=== PATIENT | female | born 1985 | race Caucasian/White ===

== ENCOUNTER 2016-05-28 09:08 | Inpatient (IN) | payer OTHER ==
[~2016-05-28] VITALS: Ht 172.7 cm; Wt 81.2 kg
[~2016-05-28 09:08] MED LIST: AMOXICILLIN875 M1 PO; BACTRIM DS TAB1 EACH PO; CLONIDINE HCL0.1 MG PO; DOLOPHINE10 MG PO; IBU800 MG PO; METHADONE H5 MG/5 M2 PO; PENICILLIN-VK500 MG PO; PREDNISONE10 MG PO; TESSALON PERLE100 MG PO; ZOFRAN4 M2 PO
--- NOTE | 2016-05-28 09:50 | ED PSYCHIATRIC COMPLAINT ---
See Addendum History of Present Illness General Chief Complaint: Psychiatric Related Complaint Stated Complaint: +SI Source: patient Exam Limitations: no limitations Vital Signs & Intake/Output Vital Signs & Intake/Output Vital Signs Date Time Temp Pulse Resp B/P Pulse O2 O2 Flow FiO2 Ox Delivery Rate 05/28 1404 Room Air 05/28 1403 97.3 64 16 112/84 05/28 1050 98.8 68 18 132/74 96 Room Air 05/28 0912 98.2 96 18 146/96 98 Room Air Allergies Coded Allergies: NO KNOWN ALLERGIES (07/16/15) Reconcile Medications Methadone HCl 5 MG/5 ML SOLUTION 75 MG PO DAILY HEROIN ABUSE (Reported) Triage Note: 30 YEAR OLD FEMALE STATES THAT SHE HAS BEEN USING HEROINE FOR 12 YEARS AND THAT SHE HAS BEEN TRYING TO STOP BUT CAN'T, WAS LIVING WITH HER MOTHER WHO HAS CUSTODY OF PATIENTS 6 YEAR OLD SON , BUT WAS KICKED OUT 2 NIGHTS AGO DUE TO SHE STOLE MONEY. PT LAST USED LAST PM AND ALSO STATES THAT SHE DRINKS A LOT BUT HAS NOT DRANK IN 2 DAYS. PT STATES THAT SHE CALLED HER MOTHER TODAY AND TOLD HER SHE WANTS TO AND HER MOTHER BROUGHT HER TO THE ER. PT HAS PLAN TO OVER DOSE ON HEROINE . STATES THAT SHE WAS RELEASED FROM ALF IN NOVEMBER , AND THAT SHE WAS IN A PROGRAM FOR AWHILE BUT NOW IS BACK USING. Triage Nurses Notes Reviewed? yes : No Patient currently breastfeeds: No HPI: Patient presents for evaluation of depression and suicide ideation. Patient states that she began using heroin again. She states that she was on a methadone maintenance program but then ended up in [facility] and was weaned off the methadone. After that she was being cared for by the [facility] program but then got "worked up" with somebody at the [facility] began using heroin again. She states she just got kicked out of her home and she is no longer able to see her daughter. She doesn't know what to do at this point. Past History Travel History Traveled to [place] past 21 day No Medical History Any Pertinent Medical History? 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 No Review of Systems Review of Systems Constitutional: Reports: no symptoms. EENTM: Reports: no symptoms. Respiratory: Reports: no symptoms. Cardiovascular: Reports: no symptoms. GI: Reports: no symptoms. Genitourinary: Reports: no symptoms. Musculoskeletal: Reports: no symptoms. Skin: Reports: no symptoms. Neurological/Psychological: Reports: see HPI. Hematologic/Endocrine: Reports: no symptoms. Immunologic/Allergic: Reports: no symptoms. All Other Systems: Reviewed and Negative Physical Exam Physical Exam General Appearance: SEE BELOW Neurological/Psychiatric: SEE BELOW Comments: General: Alert, calm, cooperative, somewhat disheveled Head: Normocephalic, atraumatic Eyes: Normal inspection, no nystagmus, EOMI Ears: Normal inspection Nose: Normal inspection Throat: Moist mucosa Neck: Supple, no goiter Heart: Regular rate and rhythm, no murmurs rubs or gallops Lungs: Clear to auscultation bilaterally with good air entry Abdomen: Soft nontender nondistended, normal bowel sounds Chest: Nontender Extremities: Normal range of motion grossly, mild tremors present, no cyanosis clubbing or edema of the upper extremities, track long of the upper extremities Neurologic: cranial nerves II through XII grossly intact, speech clear, gait normal Psychiatric: No apparent delusions or hallucinations, no pressured speech or thought blocking SAD PERSONS Done? deferred to crisis Progress Differential Diagnosis: depression, bipolar disorder, anxiety Plan of Care: Orders Procedure Date/time Status Regular Diet 05/29 B Active EKG 05/28 1632 Active Lab Add-on Test 05/28 1630 Active URINE 05/28 1630 Active Patient Data - inpatient psych 05/28 1626 Active Admit to inpatient psych 05/28 1626 Active ETHANOL 05/28 0950 Complete CBC WITHOUT DIFFERENTIAL 05/28 0950 Complete BASIC METABOLIC PANEL 05/28 0950 Complete ED CRISIS PSYCH CONSULT 05/28 0950 Active URINE DRUG SCREEN FOR ER ONLY 05/28 0942 Complete Vital Signs 05/28 UNK Active Nursing Misc 05/28 UNK Active Alternative Nursing Therapy 05/28 UNK Active Activity/Ambulation 05/28 UNK Active Current Medications Sig/José Start time Last Medication Dose Stop Time Status Admin Nicotine 14 MG DAILY 05/29 1000 UNVr (Nicotine Cq) Clonidine 0.1 MG TID 05/280 UNVr (Catapres) Acetaminophen 650 MG Q6P PRN 05/28 164 UNVr (Tylenol) Al Hydroxide/Mg 30 ML Q4-6 PRN PRN 05/28 164 UNVr Hydroxide (Maalox Plus) Gabapentin 300 MG Q6P PRN 05/28 164 UNVr (Neurontin) Magnesium Hydroxide 30 ML AT BEDTIME PRN 05/28 164 UNVr (Milk Of Magnesia) Trazodone HCl 50 MG AT BEDTIME NEED.. 05/28 164 UNVr (Desyrel) Baclofen 10 MG Q6P PRN 05/28 163 UNVr (Lioresal 10MG Tablet) Clonidine 0.1 MG Q6P PRN 05/28 163 UNVr (Catapres) Dicyclomine HCl 20 MG Q6P PRN 05/28 163 UNVr (Bentyl) Laboratory Tests 05/28/16 1059: Anion Gap 9, Estimated GFR > 60, BUN/Creatinine Ratio 11.4, Glucose 93, Calcium 9.5, CBC w Diff NO MAN DIFF REQ, RBC 4.44, MCV 87.7, MCH 30.4, RDW 13.0, MPV 7.5 , Gran % 62.8, Lymphocytes % 27.1, Monocytes % 9.3, Eosinophils % 0.6, Basophils % 0.2, Absolute Granulocytes 2.2, Absolute Lymphocytes 1.0 L, Absolute Monocytes 0.3, Absolute Eosinophils 0, Absolute Basophils 0, PUBS MCHC 34.7, Serum Alcohol < 10.0 05/28/16 0945: Urine Opiates Screen 3720.00 H, Methadone Screen < 40, Barbiturate Screen < 60, Ur Phencyclidine Scrn < 6.00, Amphetamines Screen < 100, U Benzodiazepines Scrn < 85, Urine Cocaine Screen < 50, Urine Cannabis Screen < 5.00 Departure Departure Disposition: STILL A PATIENT Condition: Stable Clinical Impression Primary Impression: Major depression Qualifiers: Major depression recurrence: recurrent Active/Remission status: currently active Major depression episode severity: severe Psychotic features: without psychotic features Qualified Code: F33.2 - Major depressive disorder, recurrent severe without psychotic features Secondary Impressions: Heroin use Referrals: PATIENT HAS NO PRIMARY CARE DR (PCP/Family) Departure Forms: Customer Survey General Discharge Information Psych Admission Note Psychiatric Admission: I have seen and evaluated DARIA BANKS. I have also reviewed all the pertinent lab results and diagnostic results. DARIA BANKS will be admitted to our inpatient Psychiatric unit for treatment and care.
[2016-05-28 11:12] LABS: ABSOLUTE BASOPHIL COUNT 0 /CUMM (0.0-0.2); ABSOLUTE EOSINOPHIL COUNT 0 /CUMM (0.0-0.7); ABSOLUTE GRANULOCYTE CT 2.2 /CUMM (1.4-6.5); ABSOLUTE MONOCYTE COUNT 0.3 /CUMM (0.10-0.60); BASOPHIL % 0.2 % (0.0-2.0); EOSINOPHIL % 0.6 % (0-5); GRANULOCYTE % 62.8 % (42.2-75.2); MEAN CORPUSCULAR HGB 30.4 PG (27.0-31.0); MEAN CORPUSCULAR HGB CONC 34.7 G/DL (33.0-37.0); MEAN CORPUSCULAR VOLUME 87.7 FL (81.0-99.0); MEAN PLATELET VOLUME 7.5 FL (7.4-10.4); PLATELET COUNT 210 /CUMM (130-400); RED BLOOD CELL CT 4.44 /CUMM (4.20-5.40); WHITE BLOOD CELL COUNT 3.5 /CUMM (4.8-10.8)
--- NOTE | 2016-05-28 14:27 | ED PSY CRISIS COLLATERAL NOTE ---
Collateral Note Collateral Note Family/Inform/Madalyn Contacts: Crisis spoke to pt's Mother Melissa Bell who had brought pt to the ED. She reports that pt always expresses that her life has no meaning. Mom continues by stating "It's true. Her life doesn't have any meaning. Her boyfriend is in penitentiary, she has no job, she's a heroin addict, she lost custody of her son. This has been going on for 10 years and you know what? She should just do her family a favor and . Her father 3 years ago and she should go join him. Sorry I can't help you good bye." She then hung up the phone.
--- NOTE | 2016-05-28 17:24 | ED PSYCH CRISIS CONSULTATION ---
Crisis Consult Basic Assessment Date of Consult: 05/28/16 Responsible Person/Accompanied By: self/mother Insurance Authorization: Insurance #1: Insurance name: ESTHER Cochran C&A Phone number: Policy number: [id number] Group number: Authorization number: ED Provider: Patient's ED Provider: ARI VIZCARRA MD Primary Care Physician: Patient's PCP: PATIENT HAS NO PRIMARY CARE DR PCP's Phone Number: Current Psychiatrist: none Chief Complaint: Psychiatric Related Complaint Patient's Quote: I don't trust myself . I'm afraid I will o/d on heroin. Present Illness: PT is a 30 you female presenting at [facility] today for SI. Pt is brought in by her mother. Pt has a 12 year hx of heroin addiction and 2 prior [facility] admissions (2006 and 2007). Pt reports heroin relapse one month ago and 2 days ago was kicked out of the house by mother for suspected stealing. Pt reports currently living in her car. Pt reports wanting to o/d on heroin and had intent last night to use 25 bags but was stopped by a friend. Pt states "I know alot of people dying from heroin o/d and why can't I be that shahab". Pt reports being hopeless. Pt reports 8 depression. Pt had a prior suicide attempt by overdose (ambian and atvern) in 2006. Pt reports not wanting to kill herself because of her 6 yo son. She reports DCF involvement due to failing drug tests. Pt reports she was court mandated last fall for [facility] and was able to stop methadone and was several months clean from heroin until relapse last month. She reports hx of anxiety(11/12) and had a prescription for xanax that her mother took away from her so she ended up using heroin instead. Pt reports last use last evening of 2 bags and reorts currently feeling shaky and sweating. Pt reports outpatient hx has been primarily drug treatment related. Pt reports recently being prescribed Wellbutrin but stopped because it was causing headaches. Pt is alert and oriented X3 and is seeking volunteer inpatient psychiatric tx. Patient's Address: [address] [place] [address] Other Phone Number: Who Do You Live With? Family (mother and son (6yo)) Family/Informants Interviewed: collateral provided by pt mother Melissa Bell - [phone]. see note Allergies - Coded Allergies: NO KNOWN ALLERGIES (07/16/15) Current Medications - Scheduled Medications Methadone HCl 5 MG/5 ML SOLUTION 75 MG PO DAILY HEROIN ABUSE (Reported) Entered as Reported by NATALEE VICTOR on 06/09/15 1435 Laboratory Results: Laboratory Tests 05/28/16 1655: Urine Test Pending 05/28/16 1059: Anion Gap 9, Estimated GFR > 60, BUN/Creatinine Ratio 11.4, Glucose 93, Calcium 9.5, Total Bilirubin Pending, Direct Bilirubin Pending, AST Pending, ALT Pending , Alkaline Phosphatase Pending, Total Protein Pending, Albumin Pending, TSH Pending, CBC w Diff NO MAN DIFF REQ, RBC 4.44, MCV 87.7, MCH 30.4, RDW 13.0, MPV 7.5, Gran % 62.8, Lymphocytes % 27.1, Monocytes % 9.3, Eosinophils % 0.6, Basophils % 0.2, Absolute Granulocytes 2.2, Absolute Lymphocytes 1.0 L, Absolute Monocytes 0.3, Absolute Eosinophils 0, Absolute Basophils 0, PUBS MCHC 34.7, Serum Alcohol < 10.0 05/28/16 0945: Urine Opiates Screen 3720.00 H, Methadone Screen < 40, Barbiturate Screen < 60, Ur Phencyclidine Scrn < 6.00, Amphetamines Screen < 100, U Benzodiazepines Scrn < 85, Urine Cocaine Screen < 50, Urine Cannabis Screen < 5.00 Past History Past Medical History Neurological: NONE EENT: NONE Cardiovascular: NONE Respiratory: NONE Gastrointestinal: pancreatitis Hepatic: NONE Renal: NONE Musculoskeletal: NONE Psychiatric: substance abuse Endocrine: NONE Blood Disorders: NONE Cancer(s): NONE 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 Wants to get better for her son. Physical Limitations (Interventions): none Psychiatric Treatment History Psych Treatment Psychiatric Treatment Yes Inpatient Treatment Yes Outpatient Treatment Yes Location of Treatment [facility] Reason for Treatment Depression o/d heroin dependence Dates of Treatment 2006; 2007 Response to Treatment 12 yrs of heroin addiction. got clean following incarceration Fall 2015. Relapse last month. Diagnosis by History: Opiate Dependence Substance Use/Abuse History Drug Use/Abuse Substances Used/Abused Yes Substance Used/Abused Heroin Last Used yesterday How much used/taken 4 bags/day How often daily For how long 12 yrs Route of use IV Substance Abuse Treatment Substance Abuse Treatment Past Substance Abuse TX Yes Inpatient Treatment Yes Outpatient Treatment Yes Location of Treatment [facility]; [facility]; [facility] Reason for Treatment Heroin Dependence Dates of Treatment Nov 2015 Response to Treatment stayed clean until relapse last month Comments: pt reports being off methadone for 9 mos and wants to stay off it. Reports occasional etoh 1-2x/month. Current Mental Status Mental Status Orientation: Person, Place, Situation Affect: Depressed, Hopeless, Sad Speech: WNL Neuro-vegetative: Anhedonia, Appetite Decreased, Energy Decreased, Helpless, Loss of Interest Appearance Appearance- Dress/Hygiene: hospital scrub. Sitting up against wall with blanket covering; good eye contact Behaviors Thought Process: WNL Thought Content: WNL Memory: WNL Insight: Fair SI/HI Risk Assessment Past Suicidal Ideation/Attempts Yes (o/d 2006) Current Suicidal Ideation/Att Yes Past Homicidal Ideation/Att: No Current Homicidal Ideation/Attempts No Degree of Intent: Thoughts/No Intent Danger To: Self Gravely Disabled: Poor Impulse Control, Poor Judgment Risk Factors: chronic/serious med cond., high anxiety/distress, history of suicide atmpts, SA/MH hospitalized, substance abuse, poor impulse control Lethality Ratin PTSD Checklist PTSD Done? patient declined ED Management Sitter: Yes Restraints: No DSM5/PS Stressors/Medical Prob Diagnosis' (DSM 5, Stressors, Medical): Major Depressive D/O recurrent severe (F33.2) Opiate Use D/O severe (F11.20) DCF Involvement Kicked out of home relapse pancreatitis Current GAF: 25 Comments: Pt reports SI; hopelessness, depression 11/12. Doesn't want to kill self but doesn't want to continue living as she has. Departure Disposition Psych Medical Clearance Date: 05/28/16 Medically Cleared at: 1615 Time Started: 1620 Time Ended: 1700 Psychiatrist Consulted: Abdiaziz Martinez MD Date Disposition Established: 05/28/16 Time Disposition Established: 1699 Plan for Disposition - Modality: Inpatient Psychiatry Facility: [facility] Rationale for Disposition: PT positive for Suicidality; Hx of heroin dependence Type of IP Admission: Voluntary Referrals PATIENT HAS NO PRIMARY CARE DR (PCP/Family)
--- NOTE | 2016-05-28 19:11 | IP CRISIS DIAG ASSESS PSYCH ---
Diagnostic Assessment Basic Assessment Insurance Authorization: Insurance #1: Insurance name: ESTHER Cochran C&A Phone number: Policy number: [id number] Group number: Authorization number: [id number] Primary Care Physician: Patient's PCP: PATIENT HAS NO PRIMARY CARE DR PCP's Phone Number: Patient's Quote: I don't trust myself . I'm afraid I will o/d on heroin. Present Illness: PT is a 30 you female presenting at [place] ED today for SI. Pt is brought in by her mother. Pt has a 12 year hx of heroin addiction and 2 prior [facility] admissions (2006 and 2007). Pt reports heroin relapse one month ago and 2 days ago was kicked out of the house by mother for suspected stealing. Pt reports currently living in her car. Pt reports wanting to o/d on heroin and had intent last night to use 25 bags but was stopped by a friend. Pt states "I know alot of people dying from heroin o/d and why can't I be that shahab". Pt reports being hopeless. Pt reports 8/ depression. Pt had a prior suicide attempt by overdose (ambian and ativan) in 2006. Pt reports not wanting to kill herself because of her 6 yo son. She reports DCF involvement due to failing drug tests. Pt reports she was court mandated last fall for [facility] and was able to stop methadone and was several months clean from heroin until relapse last month. She reports hx of anxiety(11/12) and had a prescription for xanax that her mother took away from her so she ended up using heroin instead. Pt reports last use last evening of 2 bags and reorts currently feeling shaky and sweating. Pt reports outpatient hx has been primarily drug treatment related. Pt reports recently being prescribed Wellbutrin but stopped because it was causing headaches. Pt is alert and oriented X3 and is seeking volunteer inpatient psychiatric tx. Patient's Address: [address] [place] [address] Other Phone Number: Who Do You Live With? Family (mother and son (6yo)) Feel Safe Where You Live? Yes Feel Safe in Your Relationship Yes Marital Status: single Do You Have Children? Yes Ages? 6 Primary Language? Citizen Of [place] Language(s) Spoken At Home: Citizen Of [place] Family/Informants Interviewed: collateral provided by pt mother Melissa Bell - [phone]. see note Allergies - Coded Allergies: NO KNOWN ALLERGIES (07/16/15) Current Medications - Scheduled Medications Methadone HCl 5 MG/5 ML SOLUTION 75 MG PO DAILY HEROIN ABUSE (Reported) Entered as Reported by NATALEE VICTOR on 06/09/15 1435 Consequences of Psych Med Use: recently discontinued Wellbutrin due to reported headaches Lab Results: Laboratory Tests 05/28/16 1655: Urine Test NEGATIVE 05/28/16 1059: Anion Gap 9, Estimated GFR > 60, BUN/Creatinine Ratio 11.4, Glucose 93, Calcium 9.5, Total Bilirubin 0.6, Direct Bilirubin 0.4, AST 28, ALT 57 H, Alkaline Phosphatase 65, Total Protein 7.5, Albumin 4.2, TSH 0.340, CBC w Diff NO MAN DIFF REQ, RBC 4.44, MCV 87.7, MCH 30.4, RDW 13.0, MPV 7.5, Gran % 62.8, Lymphocytes % 27.1, Monocytes % 9.3, Eosinophils % 0.6, Basophils % 0.2, Absolute Granulocytes 2.2, Absolute Lymphocytes 1.0 L, Absolute Monocytes 0.3, Absolute Eosinophils 0, Absolute Basophils 0, PUBS MCHC 34.7, Serum Alcohol < 10.0 05/28/16 0945: Urine Opiates Screen 3720.00 H, Methadone Screen < 40, Barbiturate Screen < 60, Ur Phencyclidine Scrn < 6.00, Amphetamines Screen < 100, U Benzodiazepines Scrn < 85, Urine Cocaine Screen < 50, Urine Cannabis Screen < 5.00 Toxicology Screen Completed? 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 Yes Number of Arrests: 2 Psychosocial History Strengths/Capabilities: reports SI but doesn't want to kill herself. Wants to get better for her son. Physical Limitations (Interventions): none Psychiatric Treatment History Psych Treatment Psychiatric Treatment Yes Inpatient Treatment Yes Outpatient Treatment Yes Location of Treatment [facility] Reason for Treatment Depression o/d heroin dependence Dates of Treatment 2006; 2007 Response to Treatment 12 yrs of heroin addiction. got clean following incarceration Fall 2015. Relapse last month. Diagnosis by History: Opiate Dependence Risk Factors: chronic/serious med cond., high anxiety/distress, history of suicide atmpts, SA/MH hospitalized, substance abuse, poor impulse control Substance Use/Abuse History Drug Use/Abuse minimum 12mo Hx Substances Used/Abused Yes Substance Used/Abused Heroin Last Used yesterday How much used/taken 4 bags/day How often daily For how long 12 yrs Route of use IV Substance Abuse Treatment Substance Abuse Treatment Past Substance Abuse TX Yes Inpatient Treatment Yes Outpatient Treatment Yes Location of Treatment [facility]; [facility]; [facility] Reason for Treatment Heroin Dependence Dates of Treatment Nov 2015 Response to Treatment stayed clean until relapse last month Education History Highest Level of Education: high school/GED Preferred Learning Style: visual, auditory, experiential Current Mental Status Mental Status Orientation: Person, Place, Situation Affect: Depressed, Hopeless, Sad Speech: WNL Neuro-vegetative: Anhedonia, Appetite Decreased, Energy Decreased, Helpless, Loss of Interest Appearance Appearance- Dress/Hygiene: hospital scrub. Sitting up against wall with blanket covering; good eye contact Behaviors Thought Process: WNL Thought Content: WNL Memory: WNL Insight: Fair SI/HI Risk Assessment - Minimum 6mo History- Past Suicidal Ideation/Attempts Yes (o/d 2006) Current Suicidal Ideation/Att Yes Past Homicidal Ideation/Att: No Current Homicidal Ideation/Attempts No Degree of Intent: Thoughts/No Intent Danger To: Self Gravely Disabled: Poor Impulse Control, Poor Judgment Risk Factors: chronic/serious med cond., high anxiety/distress, history of suicide atmpts, SA/MH hospitalized, substance abuse, poor impulse control Lethality Ratin Needs/Init TX Plan/Goals: Full psychiatric evaluation monitor heroin withdrawal symptoms medication management ind, group and Fam tx coordinated discharge planning AUDIT-C Questionnaire: AUDIT-C Questionnaire: Response Value ETOH use in the past year Monthly or less 1 # drinks typical/day 1 or 2 0 6 or > drinks per occasion Less than monthly 1 Total 2 DSM5/PS Stressors/Medical Prob Diagnosis' (DSM 5, Stressors, Medical): Major Depressive D/O recurrent severe (F33.2) Opiate Use D/O severe (F11.20) DCF Involvement Kicked out of home relapse pancreatitis Current GAF: 25 Comments: Pt reports SI; hopelessness, depression 11/12. Doesn't want to kill self but doesn't want to continue living as she has.
[2016-05-28 22:08] VITALS: BP 143/79
[2016-05-29 07:19] VITALS: BP 129/85
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
--- NOTE | 2016-05-29 11:14 | SOCIAL WORKER PROG NOTE PSYCH ---
Social Work Progress Note Progress Note Requested pt to sign a release for DCF she did. Also left a voicemail for her Mother as pt was not sure which office her worker was out of, and Mother have additional contacts for him. Encouraged pt to be open to learning new coping skills as a means to stay sober, and to enegage intreatment here as she would be a vital part in planning for when she is dsicharged. Pt fearful of change and needs to learn about rehab/ treatment options.
[2016-05-29 12:31] VITALS: BP 113/59; BP 122/66
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
--- NOTE | 2016-05-29 13:30 | History & Physical ---
General Information and HPI MD Statement: I have seen and personally examined DARIA BANKS and documented this H&P. The patient is a 30 year old F who presented with a patient stated chief complaint of depression/suicidal ideation, heroin abuse. Source of Information: patient Exam Limitations: no limitations History of Present Illness: The patient is a 30 yo female opioid/heroin dependence who presented in the [place] ED with depressoin and suicidal ideation (thought of taking heroin overdose). The patient had previously been in a Methadone maintenance program, however was sent to [facility] and weaned off. She was in an IOP and began using heroin again. She is unable to see her daughter who is 6. At present she describes some mild withdrawal symptoms. No severe symptoms. 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 MOTHER (MOTHER ALIVE & WELL). SISTER (HAS SIBLINGS AND OTHER RELATIVES WITH UNDERACTIVE THYROID (?ZAID'S) ). Psychosocial History Where do you live? Home Primary Language: Bengali ETOH Use: heavy use Illicit Drug Use: heroin Functional Ability Ambulation: independent Employment History Employment Unemployed Profession/Employer Worked in [employer] Review of Systems Review of Systems Constitutional: Reports: malaise (HEROIN WITHDRAWAL). EENTM: Denies: no symptoms. Cardiovascular: Denies: no symptoms. Respiratory: Denies: no symptoms. GI: Denies: no symptoms. Genitourinary: Denies: no symptoms. Musculoskeletal: Denies: no symptoms. Skin: Denies: no symptoms. Neurological/Psychological: Reports: depressed. Hematologic/Endocrine: Denies: no symptoms. Immunologic/Allergic: Denies: no symptoms. Exam & Diagnostic Data Last 24 Hrs of Vital Signs/I&O Vital Signs Date Time Temp Pulse Resp B/P Pulse O2 O2 Flow FiO2 Ox Delivery Rate 05/29 1231 64 122/66 05/29 1231 86 113/59 05/29 0933 96.6 99 16 129/85 05/29 0719 96.6 99 129/85 05/29 0645 143/79 05/28 2223 76 143/79 05/28 2208 96.9 76 143/79 05/28 2025 97.5 72 16 110/70 05/28 1646 98.2 84 16 125/76 05/28 1644 98.2 80 16 114/70 05/28 1404 Room Air 05/28 1403 97.3 64 16 112/84 Intake & Output 05/29 1600 05/29 0800 05/29 0000 Intake Total Output Total Balance Patient 81.25 kg Weight Physical Exam General Appearance Alert, Oriented X3, Cooperative, Mild Distress (IN WITHDRAWAL ) Skin No Rashes, No Breakdown, No Significant Lesion HEENT Atraumatic, PERRLA, EOMI, Mucous Membr. moist/pink Cardiovascular Regular Rate, Normal S1, Normal S2, No Murmurs Lungs Clear to Auscultation, Normal Air Movement Abdomen Normal Bowel Sounds, Soft, No Tenderness, No Hepatospenomegaly, No Masses Neurological Exam Findings: Normal Gait, Normal Speech, Strength at 5/5 X4 Ext, Normal Tone, Sensation Intact, Cranial Nerves 3-12 NL, Reflexes 2+ Cranial Nerves II through XII: INTACT Vascular Normal Pulses, Pulses Symmetrical Last 24 Hrs of Labs/Jone: Laboratory Tests 05/28/16 1655: Urine Test NEGATIVE Assessment/Plan Assessment: #Depression/Suicidal Ideation- patient thought of overdosing on heroin. Multiple stressors. Plan: Ad[facility] to [facility]. Medication as per psychiatry. #Opioid Dependence/Withdrawal- patient had restarted heroin. Previously was on Methadone Maintenance. Plan: Clonidine, Gabapentin, Baclofen, Bentyl as per protocol. #Nicotine Dependence- smoker. Plan: Nicoderm patch. #H/O Alcohol Overuse- has mostly been using heroin. Plan: Will observe. As Ranked By This Provider Problem List: 1. Substance abuse 2. Heroin use 3. Major depression Qualifiers Major depression recurrence: recurrent Active/Remission status: currently active Major depression episode severity: severe Psychotic features: without psychotic features Qualified Code: F33.2 - Major depressive disorder, recurrent severe without psychotic features Miscellaneous Miscellaneous Documentation Attending Case Discussed With: MAX DRAKE,MARY Primary Care Physician: PATIENT HAS NO PRIMARY CARE DR Patient sees these Specialists NONE Level of Patient Care: OLIVER Kline Consults Needed: Consulting Physician: NONE Attending MD Review Statement Attending Statement Attending MD Statement: examined this patient, reviewed EMR data (avail), discussed with nursing, amended to note Attending Assessment/Plan: The patient was seen and discussed with CONFIGURATION MANAGEMENT ARCHITECT.
[2016-05-29 15:40] VITALS: BP 104/71
[2016-05-29 19:35] VITALS: BP 100/64
[2016-05-30 07:58] VITALS: BP 105/63
--- NOTE | 2016-05-30 12:13 | CP SOUTH PROGRESS NOTE PSYCH ---
Psych (Inpt) Progress Note Progress Note Include the following elements, when applicable: Involvement in the active treatment of the patient with behavioral observations of the patient and the patient's response to the treatment. Review of the ongoing treatment process in the context of the treatment plan. Indication of how multi-disciplinary staff members are carrying out the treatment plan. Plans for future interventions and recommendations for revision of the treatment plan. Liaison with other physicians/providers. Progress Note: Pt notes that doing better with decreased "hopelessness." She spoke at length about recent passive SI 2 to substance use and worsening hopelessness, "seeing no future for myself." She worried that as son gets older he will start to understand her struggles with substances. Mother and son recently visited. Plan to visit today. Denies SI or HI. Denies manic or psychotic sx. Current Medications Sig/José Start time Last Medication Dose Route Stop Time Status Admin Acetaminophen 650 MG .STK-MED ONE 05/29 1251 DC PO 05/29 1252 Acetaminophen 650 MG Q6P PRN 05/28 1645 AC 05/29 PO 1257 Al Hydroxide/Mg 30 ML Q4-6 PRN PRN 05/28 1645 AC Hydroxide PO Baclofen 10 MG Q6P PRN 05/28 1630 AC 05/29 PO 1257 Clonidine 0.1 MG 0800 05/31 0800 AC PO 05/31 0801 Clonidine 0.1 MG 0800,05/30 0800 AC 05/30 PO 05/30 2200 0814 Clonidine 0.1 MG TID 05/28 2200 DC 05/29 PO 05/29 2200 2124 Clonidine 0.1 MG Q6P PRN 05/28 1630 AC 05/29 PO 0645 Dicyclomine HCl 20 MG Q6P PRN 05/28 1630 AC 05/29 PO 0645 Escitalopram Oxalate 10 MG 0800 05/29 1430 AC 05/30 PO 0814 Gabapentin 300 MG 0800,1400,2000 05/29 2000 AC 05/30 PO 0817 Gabapentin 300 MG Q6P PRN 05/28 1645 DC 05/29 PO 1257 Magnesium Hydroxide 30 ML AT BEDTIME PRN 05/28 1645 AC PO Methadone HCl 5 MG 1000 06/01 1000 AC PO 06/01 1001 Methadone HCl 10 MG 1000 05/31 1000 AC PO 05/31 1001 Methadone HCl 20 MG 1000 05/30 1000 CAN PO 05/30 1001 Methadone HCl 20 MG 1000 05/30 1000 DC 05/30 PO 05/30 1001 1010 Methadone HCl 30 MG ONE TIME ONE 05/29 1500 DC 05/29 PO 05/29 1501 1455 Multivitamins 1 TAB 05/29 1700 AC 05/30 PO 0814 Nicotine 21 MG 05/30 0800 AC 05/30 TOP 0813 Nicotine 14 MG DAILY 05/29 1000 DC 05/29 TOP 0933 Quetiapine Fumarate 100 MG AT BEDTIME 05/30 2200 AC PO Quetiapine Fumarate 50 MG AT BEDTIME NEED.. 05/29 1430 DC 05/29 PO 2124 Trazodone HCl 50 MG AT BEDTIME NEED.. 05/28 1645 DC 05/28 PO 222 Laboratory Tests 05/28 05/28 05/28 1655 1059 0945 Chemistry Sodium (137 - 145 mmol/L) 142 Potassium (3.5 - 5.1 mmol/L) 4.2 Chloride (98 - 107 mmol/L) 105 Carbon Dioxide (22 - 30 mmol/L) 27 Anion Gap (5 - 16) 9 BUN (7 - 17 mg/dL) 8 Creatinine (0.5 - 1.0 mg/dL) 0.7 Estimated GFR (>60 ml/min) > 60 BUN/Creatinine Ratio (7 - 25 %) 11.4 Glucose (65 - 99 mg/dL) 93 Calcium (8.4 - 10.2 mg/dL) 9.5 Total Bilirubin (0.2 - 1.3 mg/dL) 0.6 Direct Bilirubin (< 0.4 mg/dL) 0.4 AST (14 - 36 U/L) 28 ALT (9 - 52 U/L) 57 H Alkaline Phosphatase (<127 U/L) 65 Total Protein (6.3 - 8.2 g/dL) 7.5 Albumin (3.5 - 5.0 g/dL) 4.2 Triglycerides (<150 mg/dL) 93 Cholesterol (<200 MG/DL) 210 H LDL Cholesterol, Calc (65 - 129 mg/dL) 143 H HDL Cholesterol (40 - 60 mg/dL) 49 Cholesterol/HDL Ratio (0.00 - 4.23 %) 4 TSH (0.270 - 4.200 uIU/mL) 0.340 Hematology CBC w Diff NO MAN DIFF REQ WBC (4.8 - 10.8 /CUMM) 3.5 L RBC (4.20 - 5.40 /CUMM) 4.44 Hgb (12.0 - 16.0 G/DL) 13.5 Hct (37 - 47 %) 39.0 MCV (81.0 - 99.0 FL) 87.7 MCH (27.0 - 31.0 PG) 30.4 RDW (11.5 - 14.5 %) 13.0 Plt Count (130 - 400 /CUMM) 210 MPV (7.4 - 10.4 FL) 7.5 Gran % (42.2 - 75.2 %) 62.8 Lymphocytes % (20.5 - 51.1 %) 27.1 Monocytes % (1.7 - 9.3 %) 9.3 Eosinophils % (0 - 5 %) 0.6 Basophils % (0.0 - 2.0 %) 0.2 Absolute Granulocytes (1.4 - 6.5 /CUMM) 2.2 Absolute Lymphocytes (1.2 - 3.4 /CUMM) 1.0 L Absolute Monocytes (0.10 - 0.60 /CUMM) 0.3 Absolute Eosinophils (0.0 - 0.7 /CUMM) 0 Absolute Basophils (0.0 - 0.2 /CUMM) 0 PUBS MCHC (33.0 - 37.0 G/DL) 34.7 Serology Hepatitis A IgM Ab (NONREACTIVE) NONREACTIVE Hep Bs Antigen (NONREACTIVE) NONREACTIVE Hep B Core IgM Ab Conf (NONREACTIVE) NONREACTIVE Hepatitis C Antibody (NONREACTIVE) NONREACTIVE HIV 1&2 Ab Western Blot (NONREACTIVE) NONREACTIVE Toxicology Urine Opiates Screen (>2000 NG/ML) 3720.00 H Methadone Screen (>300 NG/ML) < 40 Barbiturate Screen (>200 NG/ML) < 60 Ur Phencyclidine Scrn (>25 NG/ML) < 6.00 Amphetamines Screen (>1000 NG/ML) < 100 U Benzodiazepines Scrn (>200 NG/ML) < 85 Urine Cocaine Screen (>300 NG/ML) < 50 Urine Cannabis Screen (>50 NG/ML) < 5.00 Serum Alcohol (<10 MG/DL) < 10.0 Urines Urine Test NEGATIVE Vital Signs Date Time Temp Pulse Resp B/P Pulse O2 O2 Flow FiO2 Ox Delivery Rate 02/25 0814 97.1 71 16 105/63 05/30 0758 97.1 71 105/63 05/29 2124 97.5 71 16 100/64 05/29 1935 97.5 71 100/64 05/29 1633 96.6 87 16 104/71 05/29 1540 87 104/71 05/29 1231 64 122/66 05/29 1231 86 113/59 MSE Appears as stated age. Cooperative behavior, good, appropriate eye contact. Nl speech rate and prosody. No psychomotor retardation or agitation. Mood better Affect euthymic, full range, appropriate, non-liable. Linear and goal directed thought process. Denies SI or HI. Does not appear to be responding to internal stimuli. Denies AVHs, paranoia, or delusions. I/J: limited A/P: Pt with MDD and OUD now with improved mood and outlook with increased future-orientation. - Changed seroquel from 50mg QHS PRN may repeat, for which she takes two doses to seroquel 100mg QHS - Continue other medictions - Encourage intergration into the milieu and increased social support from family
[2016-05-30 12:19] VITALS: BP 99/72
[2016-05-30 16:17] VITALS: BP 115/89
[2016-05-30 19:43] VITALS: BP 109/70
[2016-05-31 07:41] VITALS: BP 125/70
--- NOTE | 2016-05-31 11:56 | CP SOUTH PROGRESS NOTE PSYCH ---
Psych (Inpt) Progress Note Progress Note Include the following elements, when applicable: Involvement in the active treatment of the patient with behavioral observations of the patient and the patient's response to the treatment. Review of the ongoing treatment process in the context of the treatment plan. Indication of how multi-disciplinary staff members are carrying out the treatment plan. Plans for future interventions and recommendations for revision of the treatment plan. Liaison with other physicians/providers. Progress Note: Pt doing well today. Had a good visit with her mother and son one day ago; they will visit again today. She is trying to do some self reflection and self esteem building while here as she feels that poor image of herself leads to relapse at times. Denies SI or HI. Current Medications Sig/José Start time Last Medication Dose Route Stop Time Status Admin Acetaminophen 650 MG Q6P PRN 05/28 1645 AC 05/29 PO 1257 Al Hydroxide/Mg 30 ML Q4-6 PRN PRN 05/28 1645 AC Hydroxide PO Baclofen 10 MG Q6P PRN 05/28 1630 AC 05/29 PO 1257 Clonidine 0.1 MG 05/31 0800 DC 05/31 PO 05/31 0801 0836 Clonidine 0.1 MG 0800,05/30 0800 DC 05/30 PO 05/30 2201 2132 Clonidine 0.1 MG Q6P PRN 05/28 1630 AC 05/29 PO 0645 Dicyclomine HCl 20 MG Q6P PRN 05/28 1630 AC 05/29 PO 0645 Escitalopram Oxalate 10 MG 05/29 1430 AC 05/31 PO 0837 Gabapentin 300 MG .STK-MED ONE 05/30 1540 DC PO 05/30 1541 Gabapentin 300 MG .STK-MED ONE 05/30 1226 DC PO 05/30 1227 Gabapentin 300 MG 0800,1400,05/29 2000 AC 05/31 PO 0838 Magnesium Hydroxide 30 ML AT BEDTIME PRN 05/28 1645 AC PO Methadone HCl 5 MG 1000 06/01 1000 AC PO 06/01 1001 Methadone HCl 10 MG 1000 05/31 1000 DC 05/31 PO 05/31 1001 0840 Multivitamins 1 TAB 05/29 1700 AC 05/31 PO 0836 Nicotine 21 MG 05/30 0800 AC 05/31 TOP 0837 Quetiapine Fumarate 100 MG AT BEDTIME 05/30 2200 AC 05/30 PO 2132 Laboratory Tests 05/28 1655 Urines Urine Test NEGATIVE Vital Signs Date Time Temp Pulse Resp B/P Pulse O2 O2 Flow FiO2 Ox Delivery Rate 05/31 0836 97.6 78 16 125/70 05/31 0741 97.6 78 125/70 05/30 2132 96 109/70 05/30 1943 97.0 96 109/70 05/30 1617 67 115/89 05/30 1219 64 99/72 MSE Appears as stated age. Cooperative behavior, good, appropriate eye contact. Nl speech rate and prosody. No psychomotor retardation or agitation. Mood OK Affect slighly sad though bright when talking about her family, full range, appropriate, non-liable. Linear and goal directed thought process. Denies SI or HI. Does not appear to be responding to internal stimuli. Denies AVHs, paranoia, or delusions. I/J: limited A/P: Pt with hx of MDD and OUD now with improved mood and future oreintation. - Continue current medication regimen - Encourage family visits as main support
[2016-05-31 12:21] VITALS: BP 113/69
[2016-05-31 16:22] VITALS: BP 121/66
[2016-05-31 19:41] VITALS: BP 130/79
[2016-06-01 07:40] VITALS: BP 115/79
--- NOTE | 2016-06-01 10:37 | CP SOUTH PROGRESS NOTE PSYCH ---
Psych (Inpt) Progress Note Progress Note Include the following elements, when applicable: Involvement in the active treatment of the patient with behavioral observations of the patient and the patient's response to the treatment. Review of the ongoing treatment process in the context of the treatment plan. Indication of how multi-disciplinary staff members are carrying out the treatment plan. Plans for future interventions and recommendations for revision of the treatment plan. Liaison with other physicians/providers. Progress Note: [I discussed this patient's progress to date, current mental status, treatment process in the context of the treatment plan, and discharge planning with staff/ team in the daily morning inpatient team meeting. I also met with the patient myself in individual session.] SUBJECTIVE: "I'm upset over the DCF thing." OBJECTIVE: Current Medications Sig/José Start time Last Medication Dose Route Stop Time Status Admin Acetaminophen 650 MG .STK-MED ONE 05/31 2048 DC PO 05/31 2049 Acetaminophen 650 MG Q6P PRN 05/28 1645 AC 05/31 PO 2055 Al Hydroxide/Mg 30 ML Q4-6 PRN PRN 05/28 1645 AC Hydroxide PO Baclofen 10 MG Q6P PRN 05/28 1630 AC 05/29 PO 1257 Clonidine 0.1 MG Q8P PRN 06/01 0845 AC PO Clonidine 0.1 MG Q6P PRN 05/28 1630 DC 05/29 PO 0645 Dicyclomine HCl 20 MG Q6P PRN 05/28 1630 AC 05/29 PO 0645 Escitalopram Oxalate 10 MG 05/29 1430 AC 06/01 PO 0858 Gabapentin 300 MG .STK-MED ONE 05/31 1937 DC PO 05/31 1938 Gabapentin 300 MG .STK-MED ONE 05/31 1341 DC PO 05/31 1342 Gabapentin 300 MG 0800,1400,05/29 2000 06/01 PO 0858 Magnesium Hydroxide 30 ML AT BEDTIME PRN 05/28 1645 AC PO Methadone HCl 5 MG 1000 06/01 1000 DC 06/01 PO 06/01 1001 0901 Multivitamins 1 TAB 05/29 1700 AC 06/01 PO 0859 Nicotine 21 MG 05/30 0800 AC 06/01 TOP 0858 Quetiapine Fumarate 150 MG AT BEDTIME 06/01 2200 AC PO Quetiapine Fumarate 25 MG Q6-PRN PRN 06/01 1045 AC 06/01 PO 1037 Quetiapine Fumarate 100 MG AT BEDTIME 05/30 2200 DC 05/31 PO 5 Vital Signs Date Time Temp Pulse Resp B/P Pulse O2 O2 Flow FiO2 Ox Delivery Rate 06/01 0740 97.4 73 115/79 05/31 1941 98.1 83 130/79 05/31 1622 70 121/66 05/31 1221 66 113/69 Lab HIV 1&2 Ab Western Blot NONREACTIVE 05/28/16 1059 Hep B Core IgM Ab Conf NONREACTIVE 05/28/16 1059 Hep Bs Antigen NONREACTIVE 05/28/16 1059 Hepatitis A IgM Ab NONREACTIVE 05/28/16 1059 Hepatitis C Antibody NONREACTIVE 05/28/16 1059 ASSESSMENT: Chart, progress notes, VS, labs, EKG, and medication list were reviewed. Hepatitis panel and HIV results were reviewed with patient. Met with patient today. She presented A&Ox4. Speech was normal in rate, tone and volume. Affect was full-range. Mood was "anxious." Patient expressed frustration over DCF involvement and revoked SHRADDHA for treatment team to speak to DCF. She reported feeling hopeless and helpless over DCF involvement. She denied feeling guilty and worthless. Reported having + visits from her mother and son over the weekend. Reported good appetite. Continued to report difficulty falling and staying asleep. Requested an increase in HS seroquel. Patient remains motivated for inpatient substance abuse treatment. She denied active and passive suicidal ideation, plans and intent. She denied homicidal ideation. There was no evidence of paranoia or delusional thoughts. She denied auditory and visual hallucinations. Thought process was organized and goal directed. Thought content was appropriate. Insight/judgement were fair. Cognition was grossly intact. Patient reported tolerating medications well and denied untoward medication effects. She reported tolerating methadone taper for opiate withdrawal well. Denied acute symptoms of opiate withdrawal. VSS. Reviewed the risk/benefit/SE of increasing Seroquel, including: irreversible tardive dyskinesia, metabolic syndrome, weight gain, diabetes, hypertension, and hyperlipidemia. Patient verbalized understanding of education and was agreeable to increase. PLAN: 1. Increase Seroquel from 100mg QHS to 150mg QHS for insomnia. 2. Start Seroquel 25mg Q6hrs prn for anxiety. 3. Methadone taper completed today. 4. Change Clonidine 0.1mg Q6hrs prn to Q8hrs prn. 5. Dispo planning per primary team.
[2016-06-01 12:09] VITALS: BP 139/59
[2016-06-01 15:51] VITALS: BP 125/79
--- NOTE | 2016-06-01 15:57 | SOCIAL WORKER PROG NOTE PSYCH ---
Social Work Progress Note Progress Note SW met with patient for the first time today. Patient reported anxiety over DCF situation and knowing about her substance abuse. Patient initially rescinded her DCF release this AM and then resigned a new one this afternoon allowing GH to discuss psychiatric and discharge plan from hospital. I left voicemail for patients dcf worker, Carlos Delcid, and confirmed that patient is in the hospital and plans to be discharged tentatively tomorrow with referrals in place for short term rehab. Patient states that she has a friend she can stay with temporarily and also has called [facility] for usp bed as back up. Patient denies SI/HI/AH/VH at present and reported her desire to go to rehab. Patient signed SHRADDHA's for [facility], [facility], [facility] and [facility]. Patient called [facility] and her Rubin Cochran will change to Rubin Bills effective June 03, 2016. Clinical paperwork has been faxed to all programs that patient signed SHRADDHA for and patient has started calling programs to complete phone screenings today. Patient was in outpatient treatment with [facility] and signed SHRADDHA for this scientific writer to confirm her present hospitalization and plan to go to rehab. I spoke with patients counselor , Hill, and they are in agreement with plan for patient to go to 30 day program. Patients mother left a voicemail for this scientific writer stating that she refused to be involved in patients treatment while in the hospital and that patient can not return to the house with her and patients child. Patient is aware of this.
--- NOTE | 2016-06-01 16:50 | SOCIAL WORKER TX PLAN PSYCH ---
Treatment Plan - Please Document: - Evidence that there is ongoing collaboration between - the patient and the interdisciplinary team, - including the patient's active participation and - responsibility for engaging in the treatment regimen, - and that the treatment plan is individualized and - relevant to the patient's conditions. - Treatment plan should reflect documentation indicating - that all active therapeutic efforts are included. Strengths/Capabilities: reports SI but doesn't want to kill herself. Wants to get better for her son. Wants to stop using Heroin. Physical Limitations (Interventions): none Patient Identified Trmt Goals: "I need to get my life in order." Discharge Plan: Rehab Problem/Goals #1 Problem #1: suicidal ideation Goal (Short Term): Today I will attend 2 groups Today I will identify 2 stressors Today I will identify 2 positive supports Today I will work on recognizing 3 emotions I am feeling Goal (Heel Splitter): Be free of suicidal thoughts/attempts Develop 3 coping skills to deal with depression Identify 3 positive support systems to call in crisis Develop a crisis plan with 3 kaur people Identify 2 positive traits per week about myself Identify 2 things I have to look forward to Identify 2 positive people in my life and 1 thing I appreciate about them Interventions: Learn ways to manage depressive symptoms accordingly and identify positive supports to manage life stressors and mood fluctuations. Modalities: Encourage groups, education on depression, provide CBT treatment, family meeting. Problem/Goals #2 Problem #2: opioid dependence/ abuse Goal (Short Term): 1) Refrain from opiate use 2) Identify 3 triggers for use 3) Identify 3 sober supports 4) Identify 3 coping skills Goal (Heel Splitter): I will have family meeting on unit during my hospitalization I will Identify 3 coping skills for cravings to use I will attend all AA meetings on the unit I will set up aftercare for dual diagnosis program to address both mental health and substance abuse concerns Interventions: Learn ways to manage cravings to use substances accordingly and identify coping skills to prevent relapse from occurring due to anxious/depressed feelings. Modalities: Encourage groups, education on addiction, provide CBT treatment, family meeting. DSM5/PS Stressors/Medical Prob Diagnosis' (DSM 5, Stressors, Medical): Major Depressive D/O recurrent severe (F33.2) Opiate Use D/O severe (F11.20) DCF Involvement Kicked out of home relapse pancreatitis Current GAF: 25 Treatment Team - Responsibilities of members of the treatment team include: - Medication Management- or SALES AND MARKETING PROFESSIONAL - Medication Administration and Monitoring- Nurse - Group Therapy- Occupational Therapist - 1:1 Therapy,Disch Planning,family involvement-[employer] Worker
[2016-06-01 19:40] VITALS: BP 119/63
[2016-06-02 07:42] VITALS: BP 120/65
[2016-06-02] MEDS ORDERED: QUETIAPINE FUMA25 M1 PO (10:19)
[2016-06-02 10:20] VITALS: BP 120/65
--- NOTE | 2016-06-02 10:27 | CP SOUTH PROGRESS NOTE PSYCH ---
Psych (Inpt) Progress Note Progress Note Include the following elements, when applicable: Involvement in the active treatment of the patient with behavioral observations of the patient and the patient's response to the treatment. Review of the ongoing treatment process in the context of the treatment plan. Indication of how multi-disciplinary staff members are carrying out the treatment plan. Plans for future interventions and recommendations for revision of the treatment plan. Liaison with other physicians/providers. Progress Note: [I discussed this patient's progress to date, current mental status, treatment process in the context of the treatment plan, and discharge planning with staff/ team in the daily morning inpatient team meeting. I also met with the patient myself in individual session.] SUBJECTIVE: "I feel good." OBJECTIVE: Current Medications Sig/José Start time Last Medication Dose Route Stop Time Status Admin Acetaminophen 650 MG Q6P PRN 05/28 1645 DCD 06/01 PO 1409 Al Hydroxide/Mg 30 ML Q4-6 PRN PRN 05/28 1645 DCD Hydroxide PO Baclofen 10 MG Q6P PRN 05/28 1630 DCD 05/29 PO 1257 Clonidine 0.1 MG Q12P PRN 06/02 0739 DCD 06/02 PO 1020 Clonidine 0.1 MG Q8P PRN 06/01 0845 DC PO Dicyclomine HCl 20 MG Q6P PRN 05/28 1630 DCD 05/29 PO 0645 Escitalopram Oxalate 10 MG 05/29 1430 DCD 06/02 PO 0804 Gabapentin 300 MG ONE TIME ONE 06/01 1645 DC 06/01 PO 06/01 1646 1703 Gabapentin 300 MG 0800,1400,2000 05/29 2000 DCD 06/02 PO 1242 Magnesium Hydroxide 30 ML AT BEDTIME PRN 05/28 1645 DCD PO Multivitamins 1 TAB 05/29 1700 DCD 06/02 PO 0804 Nicotine 21 MG 05/30 0800 DCD 06/02 TOP 0804 Quetiapine Fumarate 25 MG Q8P PRN 06/02 1315 DCD PO Quetiapine Fumarate 150 MG AT BEDTIME 06/01 2200 DCD 06/01 PO 2115 Quetiapine Fumarate 25 MG Q6-PRN PRN 06/01 1045 DC 06/02 PO 1020 Vital Signs Date Time Temp Pulse Resp B/P Pulse O2 O2 Flow FiO2 Ox Delivery Rate 06/02 1020 99 120/65 06/02 0742 96.9 99 120/65 06/01 1940 98.0 112 119/63 06/01 1551 92 125/79 ASSESSMENT: Chart, progress notes, VS, labs and medication list were reviewed. Met with patient today on the date of discharge. Patient presented alert and oriented to person, place, time and situation. She had no complaints. Speech was normal in rate, tone and volume. Eye contact was appropriate. She reported her mood was "good." She reported depression of 2/10 (10 being the worst) and anxiety of 5/10 (10 being the worst). She denied urges or cravings to use substances. She remained motivated to follow-up with inpatient rehab referrals for bed availability. She was agreeable to following up with [facility] for intake and continued management of psychiatric symptoms and substance abuse. She denied active and passive suicidal ideation, plans and intent. She denied homicidal ideation. She stated and also believed she will not harm herself or others. She identified protective factors of "my son" and "my sobriety." She reported her sleep was good, and much improved on Seroquel 150mg QHS. She reported having a good appetite. There was no evidence of rand delusions or paranoia. She denied auditory and visual hallucinations. Thought process was organized and goal directed. Thought content was appropriate. Cognition was grossly intact. She successfully completed Methadone taper for opiate detox. She denied signs or symptoms of opiate withdrawal. She reported tolerating medications well and denied untoward medication effects. She reported feeling safe to discharge to her sober friend's house in [place], [place]. She reported feeling safe and ready for discharge. Strongly advised patient to engage in daily AA/NA meetings and obtain a sponsor for support in sobriety. PLAN: 1. Discharge today into the care of friend. 2. F/u with [facility] intake on 06/03/16 at 12:45PM. 3. Abstain from all substances; engage in daily AA/NA meetings and obtain sponsor for support in sobriety. 4. Follow-up daily with referrals to inpatient rehabs for bed availability. Patient provided with referral/contact information of rehabs on discharge. 5. In the event of an emergency call 911/go to nearest emergency department. Patient verbalized understanding of instruction. 6. All discharge prescriptions were called into [facility] today. Patient informed and verbalized understanding of instruction. 7. PCP appointment scheduled for patient with [facility] Dr. Srivastava on 07/27/16 at 11: 10AM to f/u with elevated cholesterol and ALT. 6. All discharge prescriptions were called into [facility] today. Patient informed and verbalized understanding of instruction. 7. PCP appointment scheduled for patient with [facility] Dr. Srivastava on 07/27/16 at 11: 10AM to f/u with elevated cholesterol and ALT.
--- NOTE | 2016-06-02 10:39 | DISCHARGE SUMMARY REPORT-PSYCH ---
Visit Information Visit Dates/Diagnosis' Admission Date: 05/28/16 Discharge Date: 06/02/16 Reason for Admission: Suicidal ideation and opiate detox. Psy Discharge Primary Diag: MDD, recurrent, severe Psy Discharge Secondary Diag: Opiate use disorder, severe; R/O substance induced mood disorder; R/O PTSD. Hospital Course Significant Lab Findings: Lab ALT 57 U/L H 05/28/16 1059 Cholesterol 210 MG/DL H 05/28/16 1059 LDL Cholesterol, Calc 143 mg/dL H 05/28/16 1059 HIV 1&2 Ab Western Blot NONREACTIVE 05/28/16 1059 Hep B Core IgM Ab Conf NONREACTIVE 05/28/16 1059 Hep Bs Antigen NONREACTIVE 05/28/16 1059 Hepatitis A IgM Ab NONREACTIVE 05/28/16 1059 Hepatitis C Antibody NONREACTIVE 05/28/16 1059 Urine Opiates Screen 3720.00 NG/ML H 05/28/16 0945 Urine Test NEGATIVE 05/28/16 1655 05/29/16 EKG: Sinus rhythm with rate of 80. NV: 184; QRSD: 92; QT: 388; QTc: 448; P: 61; QRS: 56; T: 37. Normal EKG confirmed by graphic art designer Dr. Oswald Campbell. Course Complications: None. Consultations: The patient was seen for admission history and physical by auto rental supervisor Dr. Jeremy Fang. Please refer to his note for additional information. Allergies: Coded Allergies: NO KNOWN ALLERGIES (07/16/15) Hospital Course/TX Response: The patient was monitored on the unit for safety, suicidal ideation, mood and opiate withdrawal. She participated in multimodal treatments on the unit. She was started on a methadone taper for opiate withdrawal. She successfully completed methadone taper without complications. She was additionally started on Clonidine 0.1mg three times daily for opiate withdrawal which was gradually discontinued. She was started on Lexapro 10mg every morning for anxiety and depression. Seroquel 25mg every 8 hours as needed was started for anxiety. Seroquel 50mg at bedtime was started for insomnia and increased to 150mg at bedtime with good effect. Gabapentin 300mg three times daily was started for anxiety/restless legs. Patient tolerated all medications well and denied untoward medication effects. During the hospital course, the patient's mood and affect improved. Suicidal ideation remitted. She successfully detoxed from opiates. The patient's mother refused to be involved in the patient's inpatient care. [facility] was involved and was informed that the patient would not be returning to her mother's home, where her son currently lives and is in the temporary guardianship of the patient's mother. The patient was motivated for placement at a short-term substance abuse rehab. She was referred to [facility], [facility], [facility] and [facility] rehabs. The patient was agreeable to following up with [facility] for after care treatment until being accepted to an inpatient rehab. Patient was in favor of discharge plan to live at her friend's home who is a good support and sober in [place], [place], follow-up with [facility] treatment and follow-up with referrals to inpatient rehabs regarding bed availability. On the date of discharge, 06/02/16, the patient presented alert and oriented to person, place, time and situation. She had no complaints. Speech was normal in rate, tone and volume. Eye contact was appropriate. She reported her mood was "good." She reported depression of 2/10 (10 being the worst) and anxiety of 5/10 (10 being the worst). She denied urges or cravings to use substances. She remained motivated to follow-up with inpatient rehab referrals for bed availability. She was agreeable to follow up with [facility] for intake and continued management of psychiatric symptoms and substance abuse. She denied active and passive suicidal ideation, plans and intent. She denied homicidal ideation. She stated and also believed she will not harm herself or others. She identified protective factors of "my son" and "my sobriety." She reported her sleep was good, and much improved on Seroquel 150mg QHS. She reported having a good appetite. There was no evidence of rand delusions or paranoia. She denied auditory and visual hallucinations. Thought process was organized and goal directed. Thought content was appropriate. Cognition was grossly intact. She successfully completed Methadone taper for opiate detox. She denied signs or symptoms of opiate withdrawal. She reported tolerating medications well and denied untoward medication effects. She reported feeling safe to discharge to her sober friend's house in [place], [place]. She reported feeling safe and ready for discharge. Patient was strongly advised to engage in daily AA/NA meetings and obtain a sponsor for support in sobriety. Discharge HBIPS - Tobacco Use Treatment Offered Post DC Medications Offered: Script Given-See Med List Post DC Tobacco Treatment Plan: Refused Tobcco Tx Pgm - EtOH/Drug Use D/O Treatment Offered Post DC Medications Offered: Ref Med EtOH/Drug Use D/O Post DC EtOH/SubAbuse TX Plan: Yg SubAbuse/Dual IOP Program Appt Date: 06/03/16 Program Appt Time: 1245 Metabolic Screening - Screen if on a Neuroleptic Medication - Metabolic screening should include: - Blood Pressure, BMI, Glucose or Hgb A1c, & a - Lipid profile from within the past 365 days. Metabolic Screening () Not Applicable, patient not on a neuroleptic. OR ([X]) Patient on a neuroleptic(s) . Enter below results for Glucose or Hemoglobin A1C, and lipid panel if obtained during the last 365 days. BMI: Blood Pressure: 120/65 Laboratory Results (If applicable): Lab Cholesterol 210 MG/DL H 05/28/16 1059 Cholesterol/HDL Ratio 4 % 05/28/16 1059 Glucose 93 mg/dL 05/28/16 1059 HDL Cholesterol 49 mg/dL 05/28/16 1059 LDL Cholesterol, Calc 143 mg/dL H 05/28/16 1059 Triglycerides 93 mg/dL 05/28/16 1059 Discharge Instructions General Discharge Information Discharge Medications: Discharge Medications- (Dose, route, freq, indication): HOME MEDICATION LIST START taking these NEW Home Medications: Nicotine (Nicotine Dose: On the skin, DAILY @8 AM Qty: 14 Called in to Patch) 21 MG/24 HOUR 21 Milligram for tobacco cessation Refills: 0 Pharm 1 PATCH.TD24 Apply 1 patch topically every QAM and remove before HS. Last Taken:06/02/16 Time:0800 Gabapentin Dose: ORAL, 0800,1400,2000 for Qty: 42 Called in to (Gabapentin) 300 MG 300 Milligram anxiety Refills: 0 Pharm 1 CAPSULE Take 1 cap po three times daily. Last Taken:06/02/16 Time:0800 Escitalopram Oxalate Dose: ORAL, DAILY @8 AM for Qty: 14 Called in to (Lexapro) 10 MG 10 Milligram anxiety/depression Refills: 0 Pharm 1 TABLET Take 1 tab po every morning. Last Taken:06/02/16 Time:0800 Quetiapine Fumarate Dose: ORAL, EVERY 8 HOURS Qty: 42 Called in to (Quetiapine 25 Milligram NEEDED as needed for Refills: 0 Pharm 1 Fumarate) 25 MG anxiety TABLET Take 1 tablet po every 8 hours as needed for anxiety. Quetiapine Fumarate Dose: ORAL, Every night for Qty: 21 Called in to (Seroquel) 100 MG 1.5 Tablet insomnia Refills: 0 Pharm 1 TABLET Take 1 and 1/2 tablets po at bedtime. Last Taken:06/01/16 Time:2114 Multivitamin (One Dose: ORAL, DAILY @8 AM for Qty: Daily Multivitamin) 1 Tablet VITAMIN SUPPORT Refills: 0 1 EACH TABLET Take 1 tablet po daily. Last Taken:06/02/16 Time:0800 All discharge prescriptions were called into [facility] today. Patient was advised to purchase daily multivitamins OTC and to take as directed above. Patient verbalized understanding of instruction. 1: [id number] [id number] [place] [address] Your Preferred Pharmacy [id number] [place] [address] Multiple Neuroleptics: ([X]) Not Applicable OR Document below three failed attempts at monotherapy, or a plan to taper to monotherapy, or augmentation of Clozapine. () Patient's Diet: Regular. Patient's Activity: No restrictions. DC Disposition: Patient to return to friend's home in [place], [place]. Recommendations: The patient was advised to please take medications as prescribed. She was advised to abstain from all substances; to engage in daily AA/NA meetings and obtain a sponsor for support in sobriety. She was advised to follow-up with scheduled outpatient appointments (see below in referral section). She was advised to call rehabs daily for updates on bed availability. She was advised to follow-up with scheduled [facility] appointment with Dr. Srivastava for elevated cholesterol and ALT. She was advised that in the event of an emergency to call 911/go to nearest emergency department. Patient verbalized understanding of all instructions. * Consider trial of Suboxone to reduce risk of opiate relapse if patient develops cravings to use opiates. Referred To: [facility] [address] [place] [id number] [phone] IOP intake scheduled on 06/03/16 at 12:45PM. [facility] Dr. Srivastava [address] [place] [address], [address] [id number] ([phone] PCP appointment scheduled with Dr. Srivastava on 07/27/16 at 11:10AM. Copies To: Dr. Srivastava; [facility]
[2016-06-02] MEDS ORDERED: NICOTINE PATCH1 EAC3 TOP (11:08)
[2016-06-02] MEDS ORDERED: GABAPENTIN300 M2 PO (11:09)
[2016-06-02] MEDS ORDERED: SEROQUEL100 M1 PO (11:10)
[2016-06-02] MEDS ORDERED: LEXAPRO10 M1 PO (11:10)
[2016-06-02] MEDS ORDERED: ONE DAILY MULT1 EAC2 PO (11:11)
--- NOTE | 2016-06-02 13:09 | SOCIAL WORKER PROG NOTE PSYCH ---
Social Work Progress Note Progress Note Pt reports she is preapred for discharge and has a list of resources for rehab beds if needed. At this time she is agreeable to IOP and has an intake 06/03/16 at 12:45pm. Pt will be staying with a friend, pt agrees to follow up with DCF in order to remain in compliance regarding her son. Pt did nto identify other resources. Pt denies/si/hi/ah/vh. Pt encouraged to connect to sober supports.
== END 2016-06-02 13:20 | DRG 751 ==
LOC: ERH 09:08 → CP SOUTH 16:36 → ERHI 16:36 → EDBEDREQ 17:44 → CP SOUTH 22:02
PROVIDERS: Emergency Medicine; ADMIT Psychiatry & Neurology Psychiatry
DX: F33.2 Major depressive disorder, recurrent severe without psychotic features (principal); F11.20 Opioid dependence, uncomplicated
CPT/HCPCS: 80307; 81025; 87389; 93005; 93010; G0480; Q2036

== ENCOUNTER 2017-06-16 16:27 | Emergency (ER) | payer OTHER ==
[~2017-06-16] VITALS: Ht 170.2 cm; Wt 65.8 kg
[~2017-06-16 16:27] MED LIST changes: +GABAPENTIN300 M2 PO; +LEXAPRO10 M1 PO; +NICOTINE PATCH1 EAC3 TOP; +ONE DAILY MULT1 EAC2 PO; +QUETIAPINE FUMA25 M1 PO; +SEROQUEL100 M1 PO; +SEROQUEL200 M1 PO; +SEROQUEL400 M1 PO
--- NOTE | 2017-06-16 16:31 | ED AMS/SEIZURE/WEAK/DIZZY ---
History of Present Illness General Chief Complaint: ETOH/Drug Related Complaint Stated Complaint: BIBA FOR ?ETOH OR DRUGS, AMS FOUND AT [facility] Source: patient, EMS Exam Limitations: intoxication Vital Signs & Intake/Output Vital Signs & Intake/Output Vital Signs Date Time Temp Pulse Resp B/P B/P Pulse O2 O2 Flow FiO2 Mean Ox Delivery Rate 06/16 2033 98.2 94 18 108/68 97 Room Air 06/16 1725 95 Room Air 06/16 1633 96.5 71 20 106/66 95 Room Air ED Intake and Output 06/17 0000 06/16 1200 Intake Total Output Total Balance Patient 145 lb Weight Weight Estimated Measurement Method Allergies Coded Allergies: NO KNOWN ALLERGIES (07/16/15) Reconcile Medications Escitalopram Oxalate (Lexapro) 10 MG TABLET 10 MG PO 0800 anxiety/depression Take 1 tab po every morning. Gabapentin 300 MG CAPSULE 1 CAP PO TID PRN ANXIETY (Reported) Gabapentin 300 MG CAPSULE 300 MG PO 0800,1400,2000 anxiety Take 1 cap po three times daily. Quetiapine Fumarate (Seroquel) 200 MG TABLET 2 TAB PO QPM SLEEP (Reported) Quetiapine Fumarate (Seroquel) 400 MG TABLET 1 TAB PO ONCE DAILY anxiety Triage Nurses Notes Reviewed? yes Onset: unknown Duration: unknown Timing: recent history Severity: moderate HPI: 31yo female BIBA to ED for AMS while at [facility] today. HPI limited d/t patient's intoxication. EMS state patient was found wandering around [facility] altered. Patient appears very drowsy/intoxicated however will respond to questioning. Patient with pinpoint pupils detected by EMS. Patient denies alcohol or drug use today however has history of substance abuse. Patient denies pain, suicidal intent/ideation, vomiting, injury. (Elise COSTA,Edie Dunn) Past History Travel History Traveled to [place] past 21 day No Medical History Any Pertinent Medical History? see below for history Neurological: NONE EENT: NONE Cardiovascular: NONE Respiratory: NONE Gastrointestinal: pancreatitis Hepatic: NONE Renal: NONE Musculoskeletal: NONE Psychiatric: substance abuse Endocrine: NONE Blood Disorders: NONE Cancer(s): NONE ALLERGY PHYSICIAN/Reproductive: NONE History of MRSA: Yes History of VRE: No History of CDIFF: No Surgical History Surgical History: ARTHROSCOPIC SURG LT KNEE Psychosocial History Who do you live with Family What is your primary language Italian Family History Family History, If Any: FATHER (FATHER WITH PARKINSON'S/CVA). MOTHER (MOTHER ALIVE & WELL). SISTER (HAS SIBLINGS AND OTHER RELATIVES WITH UNDERACTIVE THYROID (?ZAID'S) ). Hx Contributory? No (Edie Jordan) Review of Systems Review of Systems Constitutional: Reports: see HPI. EENTM: Reports: see HPI. Respiratory: Reports: no symptoms. Cardiovascular: Reports: no symptoms. GI: Reports: no symptoms. Genitourinary: Reports: no symptoms. Musculoskeletal: Reports: no symptoms. Skin: Reports: no symptoms. Neurological/Psychological: Reports: see HPI. Hematologic/Endocrine: Reports: no symptoms. Immunologic/Allergic: Reports: no symptoms. All Other Systems: Reviewed and Negative Comments ROS limited d/t patient's intoxication (Edie Jordan) Physical Exam Physical Exam General Appearance: well developed/nourished, drowsy Head: atraumatic, normal appearance Eyes: Bilateral: other (pinpoint OU). Ears, Nose, Throat: hearing grossly normal Neck: normal inspection, supple, full range of motion Respiratory: normal breath sounds, no respiratory distress, lungs clear Cardiovascular: regular rate/rhythm Peripheral Pulses: 2+ radial (R), 2+ radial (L) Gastrointestinal: normal bowel sounds, soft, non-tender, no organomegaly Back: normal inspection, normal range of motion Neurologic/Psych: awake, oritented to person and place, drowsy, responds to verbal stimulation, neuro exam limited d/t patient's intoxication, unable to follow commands Skin: intact, normal color, warm/dry Core Measures ACS in differential dx? No CVA/TIA Diagnosis No Sepsis Present: No Sepsis Focused Exam Completed? No (Edie Jordan) Progress Differential Diagnosis: arrythmia, alcohol intoxication, dehydration, drug intoxication, encephalitis, intracranial mass/tumor Plan of Care: Orders Procedure Date/time Status URINE DRUG SCREEN FOR ER ONLY 06/16 1630 Complete URINALYSIS 06/16 1630 Complete ETHANOL 06/16 1630 Complete COMPREHENSIVE METABOLIC PANEL 06/16 1630 Complete CBC WITHOUT DIFFERENTIAL 06/16 1630 Complete Laboratory Tests 06/16/17 1700: Urine Opiates Screen > 4000.00 H, Methadone Screen < 40, Barbiturate Screen 65, Ur Phencyclidine Scrn < 6.00, Amphetamines Screen 126, U Benzodiazepines Scrn > 800 H, Urine Cocaine Screen > 1000 H, Urine Cannabis Screen < 5.00, Urine Color YEL, Urine Clarity CLEAR, Urine pH 6.0, Ur Specific [place] >= 1.030, Urine Protein TRACE H, Urine Ketones TRACE H, Urine Nitrite NEG, Urine Bilirubin NEG, Urine Urobilinogen 0.2, Ur Leukocyte Esterase NEG, Ur Microscopic SEDIMENT EXAMINED, Urine RBC FEW H, Urine WBC RARE, Ur Epithelial Cells RARE, Urine Bacteria RARE H, Urine Mucus MOD H, Urine Hemoglobin NEG, Urine Glucose NEG 06/16/17 1650: Anion Gap 9, Estimated GFR > 60, BUN/Creatinine Ratio 18.6, Glucose 83, Calcium 9.0, Total Bilirubin 0.6, AST 24, ALT 28, Alkaline Phosphatase 32, Total Protein 6.7, Albumin 3.9, Globulin 2.8, Albumin/Globulin Ratio 1.4, CBC w Diff NO MAN DIFF REQ, RBC 3.65 L, MCV 91.7, MCH 31.4 H, MCHC 34.2, RDW 14.3, MPV 7.9, Gran % 62.8, Lymphocytes % 26.6, Monocytes % 8.3, Eosinophils % 1.9, Basophils % 0.4, Absolute Granulocytes 4.1, Absolute Lymphocytes 1.7, Absolute Monocytes 0.5, Absolute Eosinophils 0.1, Absolute Basophils 0, Serum Alcohol < 10.0 Patient has history of substance abuse, U tox shows cocaine, opiates, benzos. Patient's blood work without acute abnormality. The patient sleeping comfortably in stretcher, no acute distress. Given patient's vital signs no narcan given here in the ED. 9:30 PM, patient awake, talking on the phone. Patient has no ride home at this time. Patient signed out to Dr. Sandhu pending clinical sobriety or ride home. Initial ED EKG: none Hand-Off Endorsed To: Yeison Sandhu DO Endorsed Time: 2129 Pending: other (clinical sobriety) (Edie Jordan) Departure Departure Disposition: STILL A PATIENT Condition: Stable Clinical Impression Primary Impression: Opiate abuse, continuous Secondary Impressions: Benzodiazepine abuse, Cocaine abuse Referrals: Patient Has No Primary Care Dr (PCP/Family) Departure Forms: Customer Survey General Discharge Information (Edie Jordan) Departure Comments where 06/16/17 9 PM The patient was signed out to me by JULISSA Olivares. The patient was apparently found intoxicated by [facility]. Now she is awake alert oriented 3. She says that she is currently in a sober house per recently used again. She denies drinking alcohol but does admit to snorting heroin. She was not given Narcan in the field. She declines any interest in detox. She denies suicidal ideation or interested in speaking with crisis. Shared decision-making was utilized in her care. She was instructed to follow-up with an outpatient drug rehabilitation program. She was awake alert oriented 3 and in no acute distress. No shortness of breath. No chest pain. Her sister came and took her home. The patient did not get any Narcan in the field, or in the ED. (Yeison Sandhu DO)
[2017-06-16 17:12] LABS: ABSOLUTE BASOPHIL COUNT 0 /CUMM (0.0-0.2); ABSOLUTE EOSINOPHIL COUNT 0.1 /CUMM (0.0-0.7); ABSOLUTE GRANULOCYTE CT 4.1 /CUMM (1.4-6.5); ABSOLUTE LYMPH COUNT 1.7 /CUMM (1.2-3.4); ABSOLUTE MONOCYTE COUNT 0.5 /CUMM (0.10-0.60); BASOPHIL % 0.4 % (0.0-2.0); EOSINOPHIL % 1.9 % (0-5); GRANULOCYTE % 62.8 % (42.2-75.2); HEMATOCRIT 33.5 % (37-47); MEAN CORPUSCULAR HGB 31.4 PG (27.0-31.0); MEAN CORPUSCULAR HGB CONC 34.2 G/DL (33.0-37.0); MEAN CORPUSCULAR VOLUME 91.7 FL (81.0-99.0); MEAN PLATELET VOLUME 7.9 FL (7.4-10.4); PLATELET COUNT 205 /CUMM (130-400); RBC DISTRIBUTION WIDTH 14.3 % (11.5-14.5); RED BLOOD CELL CT 3.65 /CUMM (4.20-5.40); WHITE BLOOD CELL COUNT 6.5 /CUMM (4.8-10.8)
[2017-06-16 20:34] VITALS: BP 108/68
== END 2017-06-16 23:14 ==
LOC: ERH 16:27
PROVIDERS: Physician Assistant
DX: F11.10 Opioid abuse, uncomplicated (principal); F13.10 Sedative, hypnotic or anxiolytic abuse, uncomplicated; F14.10 Cocaine abuse, uncomplicated
CPT/HCPCS: 80307; 81001; G0480

== ENCOUNTER 2017-10-10 19:40 | Emergency (ER) | payer OTHER ==
[~2017-10-10] VITALS: Ht 175.3 cm; Wt 72.6 kg
[~2017-10-10 19:40] MED LIST changes: +CYCLOBENZAPRINE10 M1 PO; +IBUPROFEN800 M1 PO
[2017-10-10 20:19] LABS: ABSOLUTE BASOPHIL COUNT 0 /CUMM (0.0-0.2); ABSOLUTE EOSINOPHIL COUNT 0 /CUMM (0.0-0.7); ABSOLUTE GRANULOCYTE CT 6.3 /CUMM (1.4-6.5); ABSOLUTE LYMPH COUNT 1.5 /CUMM (1.2-3.4); ABSOLUTE MONOCYTE COUNT 0.2 /CUMM (0.10-0.60); BASOPHIL % 0.1 % (0.0-2.0); EOSINOPHIL % 0.3 % (0-5); GRANULOCYTE % 78.1 % (42.2-75.2); HEMATOCRIT 35.7 % (37-47); MEAN CORPUSCULAR HGB 29.9 PG (27.0-31.0); MEAN CORPUSCULAR HGB CONC 33.9 G/DL (33.0-37.0); MEAN CORPUSCULAR VOLUME 88.1 FL (81.0-99.0); MEAN PLATELET VOLUME 7.6 FL (7.4-10.4); PLATELET COUNT 272 /CUMM (130-400); RBC DISTRIBUTION WIDTH 15.2 % (11.5-14.5); RED BLOOD CELL CT 4.05 /CUMM (4.20-5.40)
--- NOTE | 2017-10-10 22:00 | ED GENERAL ADULT ---
History of Present Illness General Chief Complaint: ETOH/Drug Related Complaint Stated Complaint: OVERDOSE Source: patient Exam Limitations: no limitations Vital Signs & Intake/Output Vital Signs & Intake/Output Vital Signs Date Time Temp Pulse Resp B/P B/P Pulse O2 O2 Flow FiO2 Mean Ox Delivery Rate 10/11 1430 98.0 89 16 130/65 07/09 1422 98.0 89 16 130/65 99 Room Air 07/09 1145 97.8 64 16 112/78 07/09 1117 97.8 64 16 112/78 98 Room Air 07/09 0853 97.9 83 16 124/62 07/09 0853 97.9 83 16 124/62 99 Room Air 07/09 0610 74 16 150/81 98 Room Air 07/09 0404 97.3 72 16 100/64 07/09 0404 97.3 72 16 100/64 98 Room Air 07/09 0200 88 16 07/09 0200 88 16 99 Room Air 07/09 0011 91 16 105/72 07/09 0011 91 16 105/72 98 Room Air 07/08 2301 97.0 101 16 121/87 100 Room Air 07/08 2204 98.7 89 16 117/71 98 Room Air 07/08 2200 98.7 89 16 117/71 07/08 1946 99.0 108 18 103/69 98 Room Air ED Intake and Output 10/11 0000 10/10 1200 Intake Total 0 Output Total Balance 0 Intake, Oral 0 Patient 160 lb Weight Weight Reported by Patient Measurement Method Allergies Coded Allergies: NO KNOWN ALLERGIES (07/16/15) Triage Note: PT BIBA FROM MOTHER'S HOUSE S/P OVERDOSE. PT FOUND WITH AGONAL RESPIRATIONS BY PD ON THEIR ARRIVAL. 4 MG NARCAN ADMINISTERED INTRA NASAL BY PD WITH GOOD EFFECT. ON EMS ARRIVAL, PT ALERT WITH +N/V. PT HAS PRE HOSP IV LW 20G. PT GIVEN 4 MG NARCAN IVP BY EMS. ON ARRIVAL TO ED, PT DENIES SI/HI. PT ALERT, COOPERATIVE, SOFT SPOKEN. PT ADMITS TO INJECTING HEROIN "I USED 2 BAGS TODAY. I USUALLY USE 3-4 BAGS" ADMITS TO SMOKING COAINE YESTERDAY. 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 STATES HAS PMH OF SEIZURES WITH ETOH WITHDRAWL. PT WANDED ON ARRIVAL BY SECURITY. HAS ONE BELONGINGS BAG AND ONE VALUABLES BAG. Triage Nurses Notes Reviewed? yes Onset: Abrupt Duration: hour(s): Timing: single episode today Injury Environment: home Severity: moderate : No Patient currently breastfeeds: No HPI: 32yo female with hx of IVDU, alcoholism BIBA following herion overdose at her mother's house. Patient states that she remembers using 2 bags of IV heroin to help. She thinks that it was laced with fentanyl. Patient was found unresponsive. Patient was medicated with 4 mg Narcan intranasally and responded well becoming alert and oriented. Patient reports smoking crack cocaine yesterday. She also admits to daily alcohol use, today she had about 5 nips. Reports a history of alcohol withdrawal related seizures. The patient states that this is her first overdose, she states that it was unintentional. She denies SI/HI, chest pain, dyspnea. (Elise COSTA,Edie Dunn) Reconcile Medications Chlordiazepoxide HCl 25 MG CAPSULE 0 PO SEE ADMIN CRITERIA PRN alcohol withdrawal 1-2 cap QID x 2D, 1-2 cap TID x 2D, 1-2 cap BID x 2D, 1-2 cap QD x2D Cyclobenzaprine HCl 10 MG TABLET 1 TAB PO TID PRN muscle spasm Escitalopram Oxalate (Lexapro) 10 MG TABLET 10 MG PO 0800 anxiety/depression Take 1 tab po every morning. Gabapentin 300 MG CAPSULE 1 CAP PO TID PRN ANXIETY (Reported) Gabapentin 300 MG CAPSULE 300 MG PO 0800,1400,2000 anxiety Take 1 cap po three times daily. Ibuprofen 800 MG TABLET 1 TAB PO TID PRN pain Naloxone HCl (Narcan) 4 MG/ACTUATION SPRAY 1 INH NASB PRN PRN overdose Quetiapine Fumarate (Seroquel) 200 MG TABLET 2 TAB PO QPM SLEEP (Reported) Quetiapine Fumarate (Seroquel) 400 MG TABLET 1 TAB PO ONCE DAILY anxiety Quetiapine Fumarate (Seroquel) 200 MG TABLET 1 TAB PO QPM PRN insomnia (Alex Floyd MD) Past History Travel History Traveled to [place] past 21 day No Medical History Any Pertinent Medical History? 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 MOTHER (MOTHER ALIVE & WELL). SISTER (HAS SIBLINGS AND OTHER RELATIVES WITH UNDERACTIVE THYROID (?ZAID'S) ). Hx Contributory? No (Edie Jordan) Review of Systems Review of Systems Constitutional: Reports: see HPI. EENTM: Reports: no symptoms. Respiratory: Reports: no symptoms. Cardiovascular: Reports: no symptoms. GI: Reports: no symptoms. Genitourinary: Reports: no symptoms. Musculoskeletal: Reports: no symptoms. Skin: Reports: no symptoms. Neurological/Psychological: Reports: see HPI. Hematologic/Endocrine: Reports: no symptoms. Immunologic/Allergic: Reports: no symptoms. All Other Systems: Reviewed and Negative (Edie Jordan) Physical Exam Physical Exam General Appearance: well developed/nourished, no apparent distress, alert, awake Head: atraumatic, normal appearance Eyes: Bilateral: normal appearance. Ears, Nose, Throat: hearing grossly normal Neck: normal inspection, supple, full range of motion Respiratory: normal breath sounds, no respiratory distress, lungs clear Cardiovascular: regular rate/rhythm Back: normal inspection, normal range of motion Extremities: normal inspection, normal range of motion Neurologic/Psych: awake, alert, oriented x 3 Skin: intact, normal color, warm/dry Core Measures ACS in differential dx? No CVA/TIA Diagnosis: No Sepsis Present: No Sepsis Focused Exam Completed? No (Edie Jordan) Progress Differential Diagnoses I considered the following diagnoses in my evaluation of the patient: [Drug overdose, polysubstance abuse, alcohol abuse, alcohol intoxication, alcohol withdrawal, electrolyte abnormality, respiratory failure] Plan of Care: Orders Procedure Date/time Status Regular Diet 10/11 B Active ED CRISIS PSYCH CONSULT 10/11 1544 Active CASE MANAGEMENT CONSULT 10/11 2231 Active CIWA 10/11 2151 Active EKG 10/10 2118 Active Add-on Test (ER Only) 10/11 2031 Active HUMAN BETA HCG SCREEN 10/10 2004 Complete URINE DRUG SCREEN FOR ER ONLY 10/10 1942 Complete URINALYSIS 10/10 1942 Complete ETHANOL 10/10 1942 Complete COMPREHENSIVE METABOLIC PANEL 10/10 1942 Complete CBC WITHOUT DIFFERENTIAL 10/10 1942 Complete Current Medications Sig/José Start time Last Medication Dose Stop Time Status Admin Quetiapine Fumarate 200 MG QPM 10/11 2099 UNVr (Seroquel) Laboratory Tests 10/10/17 2155: Urine Opiates Screen 2744.00 H, Methadone Screen < 40, Barbiturate Screen < 60, Ur Phencyclidine Scrn < 6.00, Amphetamines Screen < 100, U Benzodiazepines Scrn < 85, Urine Cocaine Screen > 1000 H, Urine Cannabis Screen < 5.00, Urinalysis MOD H, Urine Color YEL, Urine Clarity HAZY H, Urine pH 6.0, Ur Specific Scuddy >= 1.030, Urine Protein >=300 H, Urine Ketones NEG, Urine Nitrite NEG, Urine Bilirubin NEG, Urine Urobilinogen 0.2, Ur Leukocyte Esterase NEG, Ur Microscopic SEDIMENT EXAMINED, Urine RBC RARE, Urine WBC 5-10 H, Ur Epithelial Cells MOD H, Urine Bacteria MANY H, Hyaline Casts 1-3 H, Granular Casts 1-3 H, Urine Mucus MOD H, Urine Hemoglobin NEG, Urine Glucose NEG 10/10/172004: Anion Gap 14, Estimated GFR > 60, BUN/Creatinine Ratio 16.7, Glucose 78, Calcium 9.6, Total Bilirubin 0.4, AST 26, ALT 37, Alkaline Phosphatase 50, Total Protein 7.6, Albumin 4.3, Globulin 3.3, Albumin/Globulin Ratio 1.3, Total Beta HCG NEGATIVE, CBC w Diff NO MAN DIFF REQ, RBC 4.05 L, MCV 88.1, MCH 29.9, MCHC 33.9 , RDW 15.2 H, MPV 7.6, Gran % 78.1 H, Lymphocytes % 18.7 L, Monocytes % 2.8, Eosinophils % 0.3, Basophils % 0.1, Absolute Granulocytes 6.3, Absolute Lymphocytes 1.5, Absolute Monocytes 0.2, Absolute Eosinophils 0, Absolute Basophils 0, Serum Alcohol 28.0 Patient's alcohol level is mildly positive at 28. Urine drug screen is positive for cocaine and opiates. Patient is requesting detox from drugs and alcohol at this time. She is not suicidal. Vital signs are stable, she is alert and oriented, no distress at this time. The patient was signed out to Dr. Fung pending further CIWA protocol and monitoring given dose of Narcan prior to arrival. Initial ED EKG: sinus rhythm @85bpm, first degree AV block, nonspecific ST changes Prior EKG: unchanged (05/29/16) Hand-Off Endorsed To: Abdiaziz Vargas MD Endorsed Time: 2248 Pending: other (CIWA) (Elise COSTA,Edie Dunn) Differential Diagnoses I considered the following diagnoses in my evaluation of the patient: (Sam DRAKE,Abdiaziz Villarreal) Comments: Patient not mounting significant CIWA scores. She does not want to speak with crisis. Informed of policy to prevent further opiate deaths and she will leave AMA. (Mariel DRAKE,Alex) Departure Departure Condition: Stable Clinical Impression Primary Impression: Heroin overdose Qualifiers: Encounter type: initial encounter Injury intent: accidental or unintentional Qualified Code: T40.1X1A - Poisoning by heroin, accidental ( unintentional), initial encounter Secondary Impressions: Polysubstance abuse Referrals: Patient Has No Primary Care Dr (PCP/Family) Departure Forms: Customer Survey General Discharge Information (Elise COSTA,Edie Dunn) PA/NURSE ADMINISTRATOR Co-Sign Statement Statement: ED Attending supervision documentation- [] I saw and evaluated the patient. I have also reviewed all the pertinent lab results and diagnostic results. I agree with the findings and the plan of care as documented in the PA's/NURSE ADMINISTRATOR's documentation. [x] I have reviewed the ED Record and agree with the PA's/NURSE ADMINISTRATOR's documentation. [] Additions or exceptions (if any) to the PAs/NURSE ADMINISTRATOR's note and plan are summarized below: [] (Sam DRAKE,Abdiaziz Villarreal) Departure Time of Disposition: 1604 Disposition: LEFT AGAINST MEDICAL ADVICE Prescriptions: Current Visit Scripts Chlordiazepoxide HCl 0 PO SEE ADMIN CRITERIA PRN alcohol withdrawal #40 CAP 1-2 cap QID x 2D, 1-2 cap TID x 2D, 1-2 cap BID x 2D, 1-2 cap QD x2D Quetiapine Fumarate (Seroquel) 1 TAB PO QPM PRN insomnia #30 TAB Naloxone HCl (Narcan) 1 INH NASB PRN PRN overdose #1 SPRAY Ref 2 (Mariel DRAKE,Alex) Critical Care Note Critical Care Note Critical Care Time: non-applicable (Elise COSTA,Edie Dunn)
[2017-10-11] MEDS ORDERED: NARCAN4 MG NAS (00:49)
[2017-10-11 14:30] VITALS: BP 130/65
[2017-10-11] MEDS ORDERED: SEROQUEL200 M1 PO (16:06)
[2017-10-11] MEDS ORDERED: NARCAN4 MG NASB (16:06)
[2017-10-11] MEDS ORDERED: CHLORDIAZEPOXID25 M3 PO (16:06)
== END 2017-10-11 16:57 | disposition left against medical advice (07) ==
LOC: ERH 19:40
PROVIDERS: Physician Assistant
DX: F11.10 Opioid abuse, uncomplicated (principal); F14.10 Cocaine abuse, uncomplicated; F10.10 Alcohol abuse, uncomplicated
CPT/HCPCS: 80307; 81001; 93005; 93010; G0480

== ENCOUNTER 2017-11-15 08:58 | Emergency (ER) | payer OTHER ==
[~2017-11-15] VITALS: Ht 172.7 cm; Wt 72.6 kg
[~2017-11-15 08:58] MED LIST changes: +CHLORDIAZEPOXID25 M3 PO; +NARCAN4 MG NAS; +NARCAN4 MG NASB
[2017-11-15 09:02] VITALS: BP 137/88
--- NOTE | 2017-11-15 09:22 | ED PSYCHIATRIC COMPLAINT ---
History of Present Illness General Chief Complaint: General Adult Stated Complaint: ANXIOUS Source: patient, old records Exam Limitations: no limitations Vital Signs & Intake/Output Vital Signs & Intake/Output Vital Signs Date Time Temp Pulse Resp B/P B/P Pulse O2 O2 Flow FiO2 Mean Ox Delivery Rate 11/15 0902 98.4 94 18 137/88 98 Room Air Allergies Coded Allergies: NO KNOWN ALLERGIES (07/16/15) Reconcile Medications Acyclovir (Zovirax) 5 % OINT...G. 1 JASMIN TOP Q3 cold sore apply to affected area(s) Chlordiazepoxide HCl 25 MG CAPSULE 0 PO SEE ADMIN CRITERIA PRN alcohol withdrawal 1-2 cap QID x 2D, 1-2 cap TID x 2D, 1-2 cap BID x 2D, 1-2 cap QD x2D Cyclobenzaprine HCl 10 MG TABLET 1 TAB PO TID PRN muscle spasm Escitalopram Oxalate (Lexapro) 10 MG TABLET 10 MG PO 0800 anxiety/depression Take 1 tab po every morning. Gabapentin 300 MG CAPSULE 1 CAP PO TID PRN ANXIETY (Reported) Gabapentin 300 MG CAPSULE 300 MG PO 0800,1400,2000 anxiety Take 1 cap po three times daily. Ibuprofen 800 MG TABLET 1 TAB PO TID PRN pain Naloxone HCl (Narcan) 4 MG/ACTUATION SPRAY 1 INH NASB PRN PRN overdose Quetiapine Fumarate (Seroquel) 200 MG TABLET 2 TAB PO QPM SLEEP (Reported) Quetiapine Fumarate (Seroquel) 400 MG TABLET 1 TAB PO ONCE DAILY anxiety Quetiapine Fumarate (Seroquel) 200 MG TABLET 1 TAB PO QPM PRN insomnia Quetiapine Fumarate (Seroquel) 200 MG TABLET 1 TAB PO QPM anxiety/sleep Triage Note: 32 YO FEMALE TO [facility] REQUESTING MED REFILL OF SERAQUEL. PT REPORTS SHE OVERDOSED APPROX 5 WEEKS AGO AND WAS SEEN HERE, REPORTS SENT HOME WITH SCRIPTS AND SHE IS OUT AND HASNT BEEN ABLE TO SLEEP AND FEELS ANXIOUS. HAS APPT ON THE WITH A PSYCHIATRIST BUT STATES NEEDS SOMETHING TO HOLD HER OVER IN THE MEAN TIME. DENIES SI/HU. DENIES DRUG/ALCHOL USE. Triage Nurses Notes Reviewed? yes Onset: Gradual Duration: day(s): : No Patient currently breastfeeds: No HPI: 32yo female with hx of polysubstance abuse, anxiety presents to ED requesting medication refill. Patient states that she has been out of her seroquel for about 4 days. Patient takes his medication at night to help her sleep. She reports feeling very anxious and having trouble falling asleep since she has been out of her medication. She has an appointment with her psychiatric [facility] next week. Patient states she has been sober for the past 5 weeks following her recent heroin overdose last month. Patient is also requesting ointment for her cold sore which has developed over the past few days. She states that Zovirax ointment has always helped her in the past. The patient denies SI/HI. (Edie Jordan) Past History Travel History Traveled to [place] past 21 day No Medical History Any Pertinent Medical History? 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 MOTHER (MOTHER ALIVE & WELL). SISTER (HAS SIBLINGS AND OTHER RELATIVES WITH UNDERACTIVE THYROID (?ZAID'S) ). Hx Contributory? No (Edie Jordan) Review of Systems Review of Systems Constitutional: Reports: no symptoms. EENTM: Reports: see HPI. Respiratory: Reports: no symptoms. Cardiovascular: Reports: no symptoms. GI: Reports: no symptoms. Genitourinary: Reports: no symptoms. Musculoskeletal: Reports: no symptoms. Skin: Reports: see HPI. Neurological/Psychological: Reports: see HPI. Hematologic/Endocrine: Reports: no symptoms. Immunologic/Allergic: Reports: no symptoms. All Other Systems: Reviewed and Negative (Edie Jordan) Physical Exam Physical Exam General Appearance: well developed/nourished, no apparent distress, alert, awake Head: atraumatic, normal appearance Eyes: Bilateral: normal appearance. Ears, Nose, Throat: 1cm crusting lesion to upper lip Neck: normal inspection, supple, full range of motion Respiratory: no respiratory distress Extremities: normal range of motion Neurological/Psychiatric: awake, alert, normal mood/affect, calm Appearance/Memory/Insight: appropriate appearance, appropriate insight Behavoir/Eye Contact/Speech: cooperative, normal speech Thoughts/Hallucinations: normal thought pattern, no apparent hallucination Skin: lesion of upper lip as mentioned above SAD PERSONS Done? patient not suicidal (Elise COSTA,Edie Dunn) Progress Differential Diagnosis: drug withdrawal, HSV, anxiety, insomnia Plan of Care: Patient was prescribed Seroquel 200mg qHS last month at time of her discharge. This medication was refilled temporarily for her until she can follow-up with her [facility]. She was also given topical zovirax ointment for her cold sore. Patient offered crisis evaluation however declines, she is not suicidal at this time. She is ready to go home. Patient agrees with plan of care. (Edie Jordan) Departure Departure Disposition: HOME OR SELF CARE Condition: Stable Clinical Impression Primary Impression: Anxiety Secondary Impressions: Cold sore Referrals: Patient Has No Primary Care Dr (PCP/Family) Additional Instructions: Take seroquel as prescribed. Follow up with your [facility] next week as scheduled. Apply Zovirax cream to cold sore as prescribed. Return with worsening symptoms or concerns. Please note that there might be incidental findings in your evaluation that are unrelated to the current emergency department visit. Please notify your primary care doctor about this emergency department visit in order to obtain and review all of the testing performed so that these incidental findings can be monitored as needed. If you had an x-ray performed, please understand that some fractures may not be seen on the initial set of x-rays. If your symptoms persist you might need a repeat set of x-rays to check for such a fracture. If you had a laceration evaluated, please understand that foreign bodies such as glass or wood may not be visible to the naked eye or on plain x-rays. If the wound becomes red, swollen, increasingly more painful or if there is any drainage from the wound, please have it reevaluated by a physician for the possibility of a retained foreign body. If you're unable to follow up as outlined in the discharge instructions please return to the emergency department. Thank you for choosing the [facility] for your care. It was a pleasure to serve you today. Departure Forms: Customer Survey General Discharge Information Prescriptions: Current Visit Scripts Quetiapine Fumarate (Seroquel) 1 TAB PO QPM #10 TAB Acyclovir (Zovirax) 1 JASMIN TOP Q3 #15 GM apply to affected area(s) (Elise COSTA,Edie Dunn) PA/JUNIOR LOAN PROCESSOR Co-Sign Statement Statement: ED Attending supervision documentation- I saw and evaluated the patient. I have also reviewed all the pertinent lab results and diagnostic results. I agree with the findings and the plan of care as documented in the PA's/JUNIOR LOAN PROCESSOR's documentation. x I have reviewed the ED Record and agree with the PA's/JUNIOR LOAN PROCESSOR's documentation. [] Additions or exceptions (if any) to the PAs/JUNIOR LOAN PROCESSOR's note and plan are summarized below: [] (Mariel DRAKE,Alex)
[2017-11-15] MEDS ORDERED: ZOVIRAX30 GM TOP (09:53)
[2017-11-15] MEDS ORDERED: SEROQUEL200 M1 PO (09:53)
== END 2017-11-15 09:57 ==
LOC: ERH 08:58
DX: F41.9 Anxiety disorder, unspecified (principal); B00.1 Herpesviral vesicular dermatitis